=== PATIENT | female | born 1975 | race Caucasian/White ===

== ENCOUNTER 2020-12-21 09:13 | Emergency (ER) | payer OTHER ==
[~2020-12-21] VITALS: Ht 170.2 cm; Wt 77.1 kg
[2020-12-21] MEDS ORDERED: MAGNESIUM PO (09:33)
[2020-12-21] MEDS ORDERED: CO Q10 PO (09:33)
[2020-12-21] MEDS ORDERED: D 3 PO (09:34)
[2020-12-21] MEDS ORDERED: RIBOFLAVIN PO (09:34)
[2020-12-21] MEDS ORDERED: B12 PO (09:34)
[2020-12-21] MEDS ORDERED: IBUPROFEN PO (09:35)
[2020-12-21 09:42] LABS: BASOPHILS 0.7 % (0.0-2.0); EOSINOPHILS 0.8 % (0.0-3.0); HEMATOCRIT 38.2 % (37.0-47.0); HEMOGLOBIN 12.4 gm/dL (12.0-15.0); LYMPHOCYTES 21.5 % (24.0-44.0); MCH 28.5 pg (26.0-34.0); MCHC 32.5 g/dL (28.0-37.0); MCV 87.6 fL (80.0-100.0); MONOCYTES 4.9 % (1.0-8.0); PLATELET COUNT 215 thou/uL (150-400); POLYS 72.1 % (36.0-66.0); RBC 4.36 mil/uL (4.20-5.00); RDW 14.5 % (10.5-14.5); WBC 4.2 thou/uL (4.0-11.0)
[2020-12-21 10:01] LABS: ANION GAP 11 mmol/L (7-16); BUN 10 mg/dL (7-18); CALCIUM 8.6 mg/dL (8.5-10.1); CHLORIDE 106 mmol/L (98-107); CO2 25 mmol/L (21-32); GLUCOSE 77 mg/dL (74-106); POTASSIUM 3.7 mmol/L (3.5-5.1); SODIUM 142 mmol/L (136-145)
[2020-12-21 10:10] LABS: ALBUMIN 3.9 g/dL (3.4-5.0); SGOT 15 U/L (15-37); SGPT 23 U/L (14-59); TOTAL BILIRUBIN 0.4 mg/dL (0.2-1.0); TOTAL PROTEIN 7.1 g/dL (6.4-8.2); TROPONIN-I <0.06 ng/mL (<0.06)
--- NOTE | 2020-12-21 10:30 | EKG ---
[place] [address] [facility] [place] [address] ELECTROCARDIOGRAM REPORT Name: MARJORIEENA Pinedo [id number] Admission: 12/21/20 Attend Phys: Discharge: Date of : 73 Report #: [id number] [facility] [place] [place] ED Test Date: 2020-12-21 Test Time: 09:19:24 Pat Name: ENA AMADOR Department: Room: Gender: F Computer Systems Analyst: meredith : 1975 Requested By: Jeff Awan Order Number: [id number] MD: Benny Sepulveda Measurements Intervals [place] Rate: 77 P: 63 KS: 140 QRS: 30 QRSD: 83 T: 28 QT: 354 QTc: 401 Interpretive Statements Sinus rhythm Probable left atrial enlargement Poor R-wave progression V1-3 No previous ECG available for comparison Electronically Signed On 12-21-2020 10:30:45 CDT by Benny Sepulveda [email or web address] <ELECTRONICALLY SIGNED> By: Benny Sepulveda MD, [facility] 12/21/20 1030 0919 8 Benny Sepulveda MD, FACC /EPI
[2020-12-21 11:10] VITALS: BP 106/63
--- NOTE | 2020-12-21 12:45 | EXE ---
[facility] [place] [address] STRESS ECHOCARDIOGRAM Name: MARJORIEENA Shahida Room #: REG [facility] [id number] Admission: 12/21/20 Attend Phys: Discharge: Date of : 73 Report #: [id number] THIS REPORT FOR: cc: Magalys Rodriguez DNP, Mary E. DNP Mancuso, Gerald M. MD [facility] ~ APPROVED REPORT Study performed: 12/21/2020 10:43:23 Exam: Stress Echocardiogram Indication: Chest pain Patient Location: ER Stress Nurse: Torie Real RN Status: routine Ht: 5 ft 7 in HR: 65 bpm BP: 106/63 mmHg Rhythm: NSR Medical History Medical History: NONE Procedure The patient underwent an Exercise Stress Test using the Moi Protocol. Blood pressure, heart rate, and EKG were monitored. An Echocardiogram was performed by time study technician in four stages in quad fashion. At peak stress, four selected images were obtained and placed side by side with resting images for comparison. Stress Test Details Stress Test: Exercise stress testing was performed using a Moi protocol. HR Resting HR: 68 bpm Max Heart Rate (APMHR): 174 bpm Max HR Achieved: 176 bpm Target HR (85% APMHR): 147 bpm % of APMHR: 101 Recovery HR: 101 bpm HR response to stress: Normal HR response to stress BP Resting BP: 106/63 mmHg Max BP: 130/72 mmHg Recovery BP: 128/62 mmHg [facility] [place] [address] STRESS ECHOCARDIOGRAM Name: ENA AMADOR Room #: REG [facility]#: [id number] Admission: 12/21/20 Attend Phys: Discharge: Date of : 73 Report #: [id number] BP response to stress: Normal blood pressure response to stress. ECG Clinical Reason for Termination: Completed protocol/Maximal effort Stress Symptoms: Dyspnea Exercise duration: 9 min 00 sec Exercise capacity: 10.10 METs Pre-Stress Echo The resting Echocardiogram showed normal left ventricular contractility with an estimated Ejection Fraction of about 55-60%. The resting echocardiogram demonstrated normal wall motion in all wall segments. Post-Stress Echo The stress Echocardiogram showed normal left ventricular contractility with an estimated Ejection Fraction of about 65%. Compared to rest, there were no stress-induced wall motion abnormalities. Conclusion Clinical Response: Non-ischemic Exercise Capacity: Average Stress ECG Response: Non-ischemic Stress Echo Images: Non-ischemic Other Information Study Quality: Good <ELECTRONICALLY SIGNED> By: Domenic Johns MD, [facility] 12/21/20 1245 1245 1245 Domenic Johns MD, FACC /INF
== END 2020-12-21 13:10 | disposition home or self-care (01) ==
LOC: ER 09:13
PROVIDERS: Emergency Medicine
DX: R07.89 Other chest pain (principal); Z79.899 Other long term (current) drug therapy